=== PATIENT | female | born 1975 | race Caucasian/White ===

== ENCOUNTER 2022-10-11 09:59 | Outpatient (CLI) | payer BC, SELFPAY ==
[2022-10-11 14:33] LABS: Chloride* 109 mmol/L (96-114); Potassium* 4.4 mmol/L (3.6-5.1); Sodium* 140 mmol/L (135-149)
[2022-10-11 14:36] LABS: Blood Urea Nitrogen* 13 mg/dL (5-24); Carbon Dioxide* 25 mmol/L (20-32); Cholesterol* 177 mg/dL (90-199); Creatinine* 0.7 mg/dL (0.5-1.5); Estimated Glomerular Filt Rate 106 ml/min; Glucose* 89 mg/dL (60-115); Triglycerides* 141 mg/dL (40-149)
[2022-10-11 14:37] LABS: Calcium* 9.3 mg/dL (8.4-10.6); HDL Cholesterol* 55 mg/dL (>=50); LDL Cholesterol Calculated 94 mg/dL (<100)
== END 2022-10-11 10:00 | disposition home or self-care (01) ==
PROVIDERS: PCP Emergency Medicine; Visit Provider Emergency Medicine
DX: I10 Essential (primary) hypertension (principal); Z13.6 Encounter for screening for cardiovascular disorders
CPT/HCPCS: 80048; 80061

== ENCOUNTER 2023-01-31 12:58 | Outpatient (CLI) | payer BC, SELFPAY ==
--- NOTE | 2023-01-31 13:20 | CRLHL7_ITS ---
For Patients: As a result of the Cures Act, medical imaging exams and procedure reports are released immediately into your electronic medical record. You may view this report before your referring provider. If you have questions, please contact your health care provider. BILATERAL SCREENING MAMMOGRAM WITH COMPUTER-AIDED DETECTION AND TOMOSYNTHESIS TECHNIQUE: CC and MLO views were obtained. These mammographic images have been obtained using full-field digital technique. These mammographic images were interpreted with the benefit of computer-aided detection. Breast Tomosynthesis was used in this interpretation. COMPARISON FILM: 11/01/20, 03/20/17, 12/17/14. FINDINGS: There are scattered areas of fibroglandular density IMPRESSION: There is no radiographic evidence for malignancy. ASSESSMENT: BI-RADS Category 1: Negative RECOMMENDATION: Routine screening mammogram in 1 year. A lay language report of this examination will be provided to the patient. Dwain Moore M.D. Diagnostic Radiologist [email or web address] GERRY/uche Transcribed: 5:31 p.mMarielos ivey/Dictated by: Dwain Moore MD @ 02/01/2023 1:00:00 PM (Electronically Signed)
== END 2023-01-31 12:59 | disposition home or self-care (01) ==
LOC: MAMMO 12:59
PROVIDERS: PCP Emergency Medicine; Visit Provider Emergency Medicine
DX: Z12.31 Encounter for screening mammogram for malignant neoplasm of breast (principal)
CPT/HCPCS: 77063; 77067

== ENCOUNTER 2023-11-21 08:23 | Outpatient (CLI) | payer BC, SELFPAY | END 2023-11-21 08:24 | disposition home or self-care (01) | PROVIDERS: PCP Emergency Medicine; Visit Provider Emergency Medicine | DX: I10 Essential (primary) hypertension (principal); Z13.220 Encounter for screening for lipoid disorders | CPT/HCPCS: 80053; 80061 ==

== ENCOUNTER 2023-12-17 08:19 | Outpatient (CLI) | payer BC, SELFPAY ==
--- NOTE | 2023-12-17 09:38 | W.ANESCHARGE ---
Anesthesia Charges Start Date/Time Anesthesia Start Date: 12/17/23 Anesthesia Start Time: 09:10 Stop Date/Time Anesthesia Stop Date: 12/17/23 Anesthesia Stop Time: 09:33
--- NOTE | 2023-12-17 11:27 | W.ANESCHARGE ---
Anesthesia Charges Start Date/Time Anesthesia Start Date: 12/17/23 Anesthesia Start Time: 09:10 Stop Date/Time Anesthesia Stop Date: 12/17/23 Anesthesia Stop Time: 09:33
== END 2023-12-17 08:20 | disposition home or self-care (01) ==
LOC: OP CLINIC 08:20
PROVIDERS: PCP Emergency Medicine; Visit Provider Internal Medicine
DX: Z12.11 Encounter for screening for malignant neoplasm of colon (principal)
CPT/HCPCS: 00811; 00812; 45378; J2704

== ENCOUNTER 2024-01-09 13:49 | Outpatient (CLI) | payer BC, SELFPAY | END 2024-01-09 13:50 | disposition home or self-care (01) | LOC: LKVREF 13:50 | PROVIDERS: PCP Emergency Medicine; Visit Provider Emergency Medicine | DX: I10 Essential (primary) hypertension (principal) | CPT/HCPCS: 80048 ==

== ENCOUNTER 2024-02-04 08:56 | Outpatient (CLI) | payer BC, SELFPAY ==
--- NOTE | 2024-02-04 09:00 | CT_ITS ---
Patient: JOSE DEMPSEY Facility:?[facility] Patient ID:?[id number] Site Patient ID:?[id number]. Site :?[id number] Study:?CT-Chest W/O lung screening-02/04/2024 9:54:16 AM Ordering Physician:MARCELA Final Report: INDICATION: Lung cancer screening. History of smoking. High risk patient with greater than 20 pack-year smoking history. TECHNIQUE: Low-dose lung cancer screening non-contrast CT chest. Dose reduction techniques were used. COMPARISON: None. FINDINGS: NODULES: 3 millimeter nodule right lower lobe, . LUNGS AND PLEURA: Mild emphysematous changes. MEDIASTINUM: Minimal vascular calcifications in the aortic arch. No adenopathy. Air-filled diverticulum in the right upper mediastinum measures 1.3 cm. CORONARY ARTERY CALCIFICATION: Mild. LIMITED UPPER ABDOMEN: Unremarkable. MUSCULOSKELETAL: Normal. IMPRESSION: 3 millimeter right lower lobe pulmonary nodule. LUNG-RADS CATEGORY: 2: Benign. RADIOLOGIST RECOMMENDATION: Continue annual screening with low-dose CT chest in 12 months. Please note that all CT scans at this facility use dose modulation, iterative reconstruction, and/or weight-based dosing when appropriate to reduce radiation dose to as low as reasonably achievable. Dictated by Dwain Moore MD @ 02/04/2024 10:18:39 AM Signed by:?Dwain Moore MD @02/04/2024 10:18:39 AM (Electronic Signature)
--- NOTE | 2024-02-04 09:15 | MM_ITS ---
Patient: JOSE DEMPSEY Facility:?[facility] Patient ID:?[id number] Site Patient ID:?[id number] Site :?[id number] Study:?XRay-Breast Bilateral 3D W/CAD-02/04/2024 9:32:52 AM Ordering Physician:?Jocelin Tsai Final Report: BILATERAL SCREENING MAMMOGRAM WITH COMPUTER-AIDED DETECTION AND TOMOSYNTHESIS TECHNIQUE: CC and MLO views were obtained. These mammographic images have been obtained using full-field digital technique. These mammographic images were interpreted with the benefit of computer-aided detection. Breast Tomosynthesis was used in this interpretation. COMPARISON FILM: 01/31/23, 11/01/20, 03/20/17. FINDINGS: The breasts are heterogeneously dense, which may obscure small masses. IMPRESSION: There is no radiographic evidence for malignancy. ASSESSMENT: BI-RADS Category 1: Negative RECOMMENDATION: Routine screening mammogram in 1 year. A lay language report of this examination will be provided to the patient. Dwain Moore M.D. Diagnostic Radiologist [email or web address] DSM/sp R& Transcribed: 2:59 p.m. SP/Dictated by: Dwain Moore MD @ 02/04/2024 10:05:00 AM Signed by:?Dwain Moore MD @02/04/2024 3:18:25 PM (Electronic Signature)
== END 2024-02-04 08:57 | disposition home or self-care (01) ==
LOC: CT 08:57
PROVIDERS: PCP Emergency Medicine; Visit Provider Emergency Medicine
DX: Z12.2 Encounter for screening for malignant neoplasm of respiratory organs (principal); R91.8 Other nonspecific abnormal finding of lung field; F17.210 Nicotine dependence, cigarettes, uncomplicated; Z12.31 Encounter for screening mammogram for malignant neoplasm of breast; R92.2 Inconclusive mammogram
CPT/HCPCS: 71271; 77063; 77067

== ENCOUNTER 2024-11-14 08:54 | Outpatient (CLI) | payer BC, SELFPAY | END 2024-11-14 08:55 | disposition home or self-care (01) | LOC: NFLDREF 11-23 23:47 | PROVIDERS: PCP Emergency Medicine; Referring Provider Emergency Medicine; Visit Provider Emergency Medicine | DX: I10 Essential (primary) hypertension (principal); Z13.6 Encounter for screening for cardiovascular disorders | CPT/HCPCS: 80048; 80061 ==

== ENCOUNTER 2025-07-29 08:47 | Outpatient (CLI) | payer BC, SELFPAY ==
--- NOTE | 2025-07-29 09:00 | CRLHL7_ITS ---
For Patients: As a result of the Century Cures Act, medical imaging exams and procedure reports are released immediately into your electronic medical record. You may view this report before your referring provider. If you have questions, please contact your health care provider. Indication: INJURY OF R SHOULDER, KNOWN SCAPULA FX, CONTINUED PAIN Technique: Noncontrast CT right shoulder Please note that all CT scans at this facility use dose modulation, iterative reconstruction, and/or weight-based dosing when appropriate to reduce radiation dose to as low as reasonably achievable. Comparison: X-rays 07/20/2025 Findings: Normal nutrient foramina is present within the mid scapula. A subtle subcortical impaction of the superior humeral head is noted measuring 7 millimeters representing a Hill-Sachs deformity. Displaced and comminuted fracture of the anterior-inferior glenoid noted compatible with bony Bankart lesion. Loose body is present within the anterior glenohumeral joint space which measures 3 millimeters. Additional loose body in subcoracoid space measures 5 millimeters. Narrowing and spurring at the acromioclavicular joint with subchondral cystic change. Intact visualized ribs. No adenopathy. Visualized lung parenchyma is normal. Thyroid is unremarkable. No mediastinal adenopathy. 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 Loose bodies are present in the glenohumeral joint and in the subcoracoid recess. Please note that all CT scans at this facility use dose modulation, iterative reconstruction, and/or weight-based dosing when appropriate to reduce radiation dose to as low as reasonably achievable. Dictated by Dwain Moore MD @ 07/29/2025 10:53:55 AM (Electronically Signed)
== END 2025-07-29 08:48 | disposition home or self-care (01) ==
LOC: CT 08:48
PROVIDERS: Visit Provider Orthopaedic Surgery
DX: M25.511 Pain in right shoulder (principal); T84.038A Mechanical loosening of other internal prosthetic joint, initial encounter; S49.91XA Unspecified injury of right shoulder and upper arm, initial encounter
CPT/HCPCS: 73200